=== PATIENT | female | born 1940 | race Caucasian/White ===

== ENCOUNTER 2016-07-21 08:18 | Day surgery (SDC) | payer MEDICARE, BC ==
--- NOTE | 2016-07-13 13:12 | HISTORY AND PHYSICAL E ---
History and Physical NAME: ALMAZ ISLAS : 1940 AGE: 76Y ADMITTED: 07/21/2016 ROOM: DATE/REASON FOR ADMISSION: Patient will be admitted for colonoscopy in the OR sometime next week. REFERRED BY: [facility]. HISTORY OF PRESENT ILLNESS: A 76-year-old female with abdominal pain, reflux, hemorrhoids. SOCIAL HISTORY: Patient quit smoking. She does not drink. PAST SURGICAL HISTORY: 1. Cholecystectomy 2006. 2. Appendectomy. 3. Tubal ligation. 4. Right mastectomy. 5. Upper GI showing hernia controlled by PPI. MEDICATIONS: 1. Metoprolol. 2. Losartan. 3. Thyroid. 4. Omeprazole. 5. Vitamin D. 6. Magnesium. REVIEW OF SYSTEMS: CARDIAC: Hypertension. ENDOCRINE: Hypothyroid. GASTROINTESTINAL: Abdominal pain, reflux, hemorrhoids, blood in the stool. HEMATOLOGY/ONCOLOGY: CA of the right breast. FAMILY HISTORY: Father had heart disease. Mom of old age. PHYSICAL EXAMINATION: GENERAL: A pleasant 76-year-old female. VITAL SIGNS: Blood pressure 130/80. Pulse 80. Respirations 18. Temperature 98. HEAD, EYES, EARS, NOSE AND THROAT: Normal. NECK: Supple. CARDIOVASCULAR: Normal. LUNGS: Clear. ABDOMEN: Soft. NEUROLOGIC EXAM: Negative. CONCLUSIONS: 1. Abdominal pain. 2. Blood in the stool. 3. Hemorrhoids. PLAN: Colon exam to be done in the OR with Anesthesia standby. 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 DICTATING PHYSICIAN: PEDRO ALVARADO M.D. [id number] Y#: [id number] ID: [id number] JOB#: [id number] ACCT: [id number] cc:PEDRO ALVARADO M.D. >
[2016-07-20 10:50] LABS: ABSOLUTE EOSINOPHILS # (AUTO) 0.1 10^3/uL (0.0-0.6); ABSOLUTE LYMPHOCYTES (AUTO) 1.1 10^3/uL (0.5-4.7); ABSOLUTE MONOCYTES (AUTO) 0.3 10^3/uL (0.1-1.4); ABSOLUTE NEUT (AUTO) 3.1 10^3/uL (1.7-8.2); BASOPHILS % (AUTO) 0.9 % (0-2); EOSINOPHILS % (AUTO) 1.3 % (0-6); HEMATOCRIT 40.5 % (36.0-47.0); HEMOGLOBIN 13.6 g/dL (12.0-15.5); HGB HCT DIFFERENCE 0.3; LYMPHOCYTES % (AUTO) 23.3 % (13-45); MEAN CORPUSCULAR HEMOGLOBIN 30.4 pg (27.0-33.4); MEAN CORPUSCULAR HGB CONC 33.5 g/dL (32.0-36.0); MEAN CORPUSCULAR VOLUME 91 fl (80-97); MONOCYTES % (AUTO) 7.4 % (3-13); RED BLOOD COUNT 4.47 10^6/uL (3.72-5.28); RED CELL DISTRIBUTION WIDTH 13.5 % (11.5-14.0); SEGMENTED NEUTROPHILS % (AUTO) 67.1 % (42-78); WHITE BLOOD COUNT 4.6 10^3/uL (4.0-10.5)
[2016-07-20 11:16] LABS: ANION GAP 11 (5-19); BLOOD UREA NITROGEN 18 mg/dL (7-20); CALCIUM 10.2 mg/dL (8.4-10.2); CARBON DIOXIDE 30 mmol/L (22-30); CHLORIDE 100 mmol/L (98-107); CREATININE RESULT 1.01 mg/dL (0.52-1.25); GLUCOSE 96 mg/dL (75-110); POTASSIUM 4.1 mmol/L (3.6-5.0); SODIUM 140.6 mmol/L (137-145)
--- NOTE | 2016-07-20 12:02 | EKG REPORT ---
SEVERITY:- ABNORMAL ECG - SINUS RHYTHM PROBABLE POSTERIOR INFARCT : Confirmed by: Stella Simon MD 20-Jul-2016 12:00:59
[~2016-07-21 08:18] MED LIST: LACTATED RINGERS 1000 ML IV PRN; LIDOCAINE 0.5% INJ-PF (5 MG/ML) 50 ML SDV SUBCUT PRN
[2016-07-21] MEDS ORDERED: MIDAZOLAM 2 MG/2 ML INJ ONE (09:22)
[2016-07-21] MEDS ORDERED: PROPOFOL INJ 200 MG/20 ML VIAL IV ONE (09:22)
[2016-07-21] MEDS ORDERED: PROMETHAZINE HCL INJ 25 MG/1 ML VIAL IV PRN ×2 (11:08)
[2016-07-21] MEDS ORDERED: OXYCODONE-ACETAMINOPHEN 5-325 MG TABLET PO PRN ×2 (11:08)
[2016-07-21] MEDS ORDERED: DIPHENHYDRAMINE HCL 50 MG/ML VIAL IV PRN (11:08)
[2016-07-21] MEDS ORDERED: FENTANYL CITRATE INJ/PF 100 MCG/2 ML AMPUL IV PRN ×3 (11:08)
[2016-07-21] MEDS ORDERED: MORPHINE SULFATE 10 MG/ML INJ IV PRN (11:08)
[2016-07-21] MEDS ORDERED: MEPERIDINE HCL/PF INJ 25 MG/1 ML DISP.SYRIN IV PRN (11:08)
[2016-07-21] MEDS ORDERED: GLUCAGON,HUMAN RECOMB 1 MG INJ ONE (11:09)
--- NOTE | 2016-07-21 13:41 | DISCHARGE SUMMARY E ---
Discharge Summary NAME: ALMAZ ISLAS : 1940 AGE: 76Y ADMITTED: 07/21/2016 DISCHARGED: 07/21/2016 FINAL DIAGNOSES: 1. Thrombosed external hemorrhoids. 2. Rectosigmoid polyp sessile, injected, resected. 3. A 3 mm sigmoid descending colon diverticulosis. 4. A 3 mm ascending colon polyp. HISTORY: Patient is 76 and underwent colon screening that shows no malignancy, benign-looking polyp 3 mm ascending colon, and sigmoid polyp injected, resected. PLAN: Awaiting surgical consult. Full liquid diet for today. Low-residue diet. Baseline CBC. Followup office visit in the next few days. DICTATING PHYSICIAN: PEDRO ALVARADO M.D. [id number] PHY#: [id number] ID: [id number] JOB#: [id number] ACCT: [id number] cc:PEDRO ALVRAADO M.D. >
--- NOTE | 2016-07-21 13:46 | OPERATIVE REPORT E ---
Operative Report NAME: ALMAZ ISLAS : 1940 AGE: 76Y ROOM: ADDENDUM: The patient is 76 and presented with rectal bleeding. Her colon showed sessile polyps, sigmoid, dissected 3 mm, 2 mm polyp ascending colon. DISCHARGE PLAN: 1. Awaiting surgical consult. 2. Patient needs to have followup colonoscopy two years to be done in the OR with anesthesia stand-by. CC:PEDRO ALVARADO M.D. >
--- NOTE | 2016-07-21 13:47 | OPERATIVE REPORT E ---
Operative Report NAME: ALMAZ ISLAS : 1940 AGE: 76Y DATE OF SURGERY: 07/21/2016 ROOM: PREOPERATIVE DIAGNOSES: 1. Rectal bleeding. 2. External hemorrhoids. PROCEDURE: Colonoscopy. SURGEON: PEDRO ALVARADO M.D. ANESTHESIA: Done in the OR with anesthesia standby. TISSUE REMOVED OR ALTERED: 1. Polyp in rectosigmoid junction, 3 mm, inject and resect. 2. Small polyp in ascending colon. Biopsy obtained. DESCRIPTION OF PROCEDURE: Rectal exam: Thrombosed external hemorrhoids. Surgical consult is requested. Rectum shows normal. Rectosigmoid shows a small sessile polyp 1/2 cm, inject and resect. Good coagulation with no bleeding. Descending colon diverticulosis. Transverse colon normal. Ascending colon shows a small polyp. Biopsy obtained. Cecum normal. Scope withdrawn from cecum, ascending, transverse, descending, sigmoid all the way to the rectum. CONCLUSION: 1. Small polyp ascending colon. Biopsy obtained. 2. Sigmoid descending colon diverticulosis. 3. Rectosigmoid polyp injected and resected. 4. External hemorrhoids. DISCHARGE PLAN: Surgical consult regarding external hemorrhoids. Sigmoid diverticulosis. Discharge on full liquid diet. Baseline CBC. DICTATING PHYSICIAN: PEDRO ALVARADO M.D. [id number] Y#: [id number] ID: [id number] JOB#: [id number] ACCT: [id number] cc:PEDRO ALVARADO M.D. >
[2016-07-21 15:09] VITALS: BP 114/70
== END 2016-07-21 15:00 | disposition home or self-care (01) ==
LOC: OROUT 08:18
PROVIDERS: ATTEND Specialist
PROC: 0DBN8ZX Excision of Sigmoid Colon, Via Natural or Artificial Opening Endoscopic, Diagnostic (ICD-10-PCS; principal; 2016-07-21 10:00)
PROC: 3E0H8GC Introduction of Other Therapeutic Substance into Lower GI, Via Natural or Artificial Opening Endoscopic (ICD-10-PCS; 2016-07-21 10:00)
PROC: 0DBK8ZX Excision of Ascending Colon, Via Natural or Artificial Opening Endoscopic, Diagnostic (ICD-10-PCS; 2016-07-21 10:00)
DX: K57.30 Diverticulosis of large intestine without perforation or abscess without bleeding (principal); D12.7 Benign neoplasm of rectosigmoid junction; D12.2 Benign neoplasm of ascending colon; K64.4 Residual hemorrhoidal skin tags; K21.9 Gastro-esophageal reflux disease without esophagitis; I10 Essential (primary) hypertension; E03.9 Hypothyroidism, unspecified; Z87.891 Personal history of nicotine dependence; Z79.899 Other long term (current) drug therapy; Z85.3 Personal history of malignant neoplasm of breast
CPT/HCPCS: 45380; 45385; 45381; 93005; 36415; 85025; 80048; 88305 ×2; 71020; 93010; J2250; J3490; J2704; 810; J1610